=== PATIENT | male | born 1945 | race Caucasian/White ===

== ENCOUNTER 2016-09-02 14:42 | Emergency (ER) | payer MEDICARE, OTHER ==
[~2016-09-02] VITALS: Ht 172.7 cm; Wt 131.0 kg
[2016-09-02 14:56] VITALS: BP 107/73; PULSE 83; RESP 18; TEMP 98; O2SAT 94
[2016-09-02] MEDS ORDERED: WARF-22 PO (15:25)
[2016-09-02] MEDS ORDERED: AMLO10TA2 PO (15:25)
[2016-09-02] MEDS ORDERED: GLYB2.5T3 PO (15:25)
[2016-09-02] MEDS ORDERED: CENTTAB PO (15:25)
[2016-09-02] MEDS ORDERED: CARV25TA PO (15:25)
[2016-09-02] MEDS ORDERED: JANU50TA8 PO (15:25)
[2016-09-02] MEDS ORDERED: ROSU1TAB6 PO (15:25)
[2016-09-02] MEDS ORDERED: INDA2.5T PO (15:25)
[2016-09-02] MEDS ORDERED: CLIN1CAP6 PO (15:39)
--- NOTE | 2016-09-02 15:44 | PD ---
HPI Chief Complaint: Skin Problem Time Seen by Provider: 15:39 Travel History International Travel<30 days: No Contact w/Intl Traveler<30days: No Traveled to known affect area: No History of Present Illness HPI 71-year-old male presents to the emergency room for evaluation of right lower extremity redness, swelling, and pain for the past 3 days. Patient states hit symptoms similar to this 7 years ago at which time he was diagnosed with cellulitis. States this feels and looks the same. On day 1 and had a temperature of 102 but he has not had one since. He has not taken anything for his symptoms. Patient is taking Coumadin for A. fib. Denies nausea, vomiting. PFSH Past Medical History Hx Anticoagulant Therapy: Yes (COUMADIN) Cardiovascular Problems: Yes (A-FIB) Diabetes: Yes Patient Takes Glucophage: No Influenza Vaccination: Yes Social History Alcohol Use: Yes (RARELY) Tobacco Use: No Substance Use: No Allergies-Medications (Allergen,Severity, Reaction): Coded Allergies: No Known Allergies (Unverified , 09/02/16) Reported Meds & Prescriptions Reported Meds & Active Scripts Active Clindamycin (Clindamycin HCl) 300 Mg Cap 300 Mg PO Q6H 10 Days Reported Centrum Silver (Multiple Vitamins W/ Minerals) 1 Tab 1 Tab PO DAILY Warfarin 10 Mg Tab 10 Mg PO DAILY Amlodipine (Amlodipine Besylate) 10 Mg Tab 10 Mg PO DAILY Carvedilol 25 Mg Tab 25 Mg PO BID Rosuvastatin (Rosuvastatin Calcium) 10 Mg Tab 10 Mg PO HS Janumet (Sitagliptin-Metformin) 50-1,000 Mg Tab 1 Tab PO BID Indapamide 2.5 Mg Tab 1 Tab PO DAILY Glyburide 2.5 Mg Tab 2.5 Mg PO BID Take with meals at the same time each day Review of Systems Except as stated in HPI: all other systems reviewed are Neg Physical Exam Narrative GENERAL: Well-nourished, morbidly obese male in no acute distress. Afebrile. Ambulatory. SKIN: Warm and dry. Mild, not well-demarcated erythema of the right anterior, distal tibia. Mildly increased warmth. No open sores or wounds. HEAD: Normocephalic. EYES: No scleral icterus. No injection or drainage. NECK: Supple, trachea midline. No JVD or lymphadenopathy. EXTREMITY: Right lower extremity tender to palpation over the anterior, distal tibia. Full range of motion in all joints. Left and right leg are 29 cm at affected area. Data Data Last Documented VS Vital Signs Date Time Temp Pulse Resp B/P Pulse Ox O2 Delivery O2 Flow Rate FiO2 09/02/16 14:56 98.0 83 18 107/73 94 MDM Medical Decision Making Medical Screen Exam Complete: Yes Emergency Medical Condition: Yes Medical Record Reviewed: Yes Differential Diagnosis Cellulitis versus abscess versus DVT unlikely Narrative Course 71-year-old male presents to the emergency room for evaluation of painful erythema to the right, distal tibia for the past 3 days. Patient is afebrile and well-appearing in the emergency room. Vital signs stable. Physical exam reveals mild erythema with slight increased warmth to the right, distal extremity that is tender to palpation. No calf tenderness. Bilateral lower extremities are 29 cm at the affected area. Patient is on Coumadin. Low risk for DVT and physical exam is more consistent with cellulitis. I had my attending physician, Dr. Singh, assess the patient and she agrees. He will be started on an outpatient trial of clindamycin and to follow-up with his primary care physician and return to the emergency room for worsening symptoms. He understands and agrees to plan. Diagnosis Primary Impression: Cellulitis of right lower extremity Referrals: Primary Care Physician Patient Instructions: Cellulitis (ED), General Instructions Additional Instructions: Rest and drink plenty of fluids. Clindamycin as directed, until gone. Follow-up with a primary care physician. Return to the emergency room in 2 days if symptoms are worsening or not improving. Med/Other Pt SpecificInfo: Prescription(s) given Scripts Clindamycin 300 Mg [id number] Mg PO Q6H 10 Days Ref 0 Prov:Lucrecia Singh DO 09/02/16 Disposition: 01 DISCHARGE HOME Condition: Stable Edel Conner Sep 02, 2016 15:43
== END 2016-09-02 16:09 | disposition home or self-care (01) ==
LOC: PHEFT 14:42
DX: L03.115 Cellulitis of right lower limb (principal); I48.91 Unspecified atrial fibrillation; Z79.01 Long term (current) use of anticoagulants
CPT/HCPCS: 99283